=== PATIENT | male | born 2000 | race Caucasian/White ===

== ENCOUNTER → 2023-08-15 10:37 | Outpatient (CLI) | payer OTHER, SELFPAY ==
[2023-08-15 20:17] LABS: Add Manual Diff / Slide Review NO; Basophils Absolute Auto 0 /uL (0-100); Basophils Percent Auto 0.4 % (0-2); Eosinophils Absolute Auto 200 /uL (0-450); Eosinophils Percent Auto 3.9 % (2-4); Hematocrit 44.8 % (41-53); Hemoglobin 15.2 g/dL (13.5-17.5); Lymphocytes Absolute Auto 2000 /uL (1100-4500); Lymphocytes Percent Auto 30.9 % (25-40); Mean Corpuscular HGB Conc 33.9 % (30-36); Mean Corpuscular Hemoglobin 29.2 PG (26-34); Mean Corpuscular Volume 86.2 fL (80-100); Monocytes Absolute Auto 500 /uL (0-900); Monocytes Percent Auto 7.4 % (3-14); Neutrophils Absolute Auto 3700 /uL (1500-7000); Neutrophils Percent Auto 57.4 % (50-75); Platelet Count 257 X10^3/uL (150-400); Red Blood Cell Count 5.19 X10^6/uL (4.5-5.9); Red Cell Distribution Width 13.8 % (11.6-14.8); White Blood Cell Count 6.4 X10^3/uL (4.5-11.0)
[2023-08-15 20:30] LABS: Albumin 4.8 g/dL (3.5-5.0); Carbon Dioxide 25 mmol/L (22-32)
[2023-08-15 20:36] LABS: Alanine Aminotransferase 18 IU/L (<50); Albumin Globulin Ratio 1.4 (1.0-2.8); Alkaline Phosphatase 47 U/L (38-126); Aspartate Aminotransferase 24 IU/L (17-59); BUN Creatinine Ratio 16.9 (6-22); Bilirubin Total 1.1 mg/dL (0.2-1.3); Blood Urea Nitrogen 12 mg/dL (9-20); Chloride 104 mmol/L (98-107); Cholesterol 201 mg/dL (140-199); Estimated Glomerular Filt Rate > 60 mL/min (>60); Globulin 3.5 g/dL (1.7-4.1); Glucose 97 mg/dL (70-100); HDL Cholesterol 48 mg/dL (40-60); HEMOLYSIS 17 (0-50); LDL Cholesterol Calculated 133 mg/dL (<100); Potassium 4.1 mmol/L (3.4-5.1); Sodium 140 mmol/L (137-145); Total Protein 8.3 g/dL (6.3-8.2); Triglycerides 101 mg/dL (35-150)
[2023-08-15 22:02] LABS: Urine N gonorrhoeae NOT DETECTED
[2023-08-15 22:10] LABS: Urine Chlamydia NOT DETECTED
[2023-08-16 16:19] LABS: HIV 1 & 2 Ab/Ag 4th Gen Combo NEGATIVE (NEGATIVE); Hep C Virus Ab w/Reflex Quant NEGATIVE s/c (NEGATIVE); Hepatitis B Surface Antigen NEGATIVE s/c (NEGATIVE)
[2023-08-17 05:37] LABS: RPR Screen Non Reactive (Non Reactive)
== END ==
PROVIDERS: PCP Physician Assistant; Visit Provider Physician Assistant Medical
DX: Z11.2 Encounter for screening for other bacterial diseases (principal); Z12.11 Encounter for screening for malignant neoplasm of colon; Z20.2 Contact with and (suspected) exposure to infections with a predominantly sexual mode of transmission
CPT/HCPCS: 80053; 80061; 84443; 85025; 86592; 86803; 87340; 87389; 87491; 87591